=== PATIENT | female | born 1960 | race Caucasian/White ===

== ENCOUNTER 2017-11-24 11:12 | Outpatient (CLI) | payer BC | END 2017-11-24 11:13 | disposition home or self-care (01) | LOC: BICRAD 11:12 | PROVIDERS: ATTEND Internal Medicine | DX: R04.2 Hemoptysis (principal) | CPT/HCPCS: 36415; 71046; 80053; 80061; 81001; 84443; 85025; 87077; 87086; 87186 ==

== ENCOUNTER 2018-11-24 11:05 | Outpatient (CLI) | payer BC | END 2018-11-24 11:06 | disposition home or self-care (01) | LOC: BICMAMMO 11:05 | PROVIDERS: ATTEND Family Medicine | DX: Z12.31 Encounter for screening mammogram for malignant neoplasm of breast (principal); R92.1 Mammographic calcification found on diagnostic imaging of breast; N64.89 Other specified disorders of breast; Z98.890 Other specified postprocedural states; Z80.3 Family history of malignant neoplasm of breast | CPT/HCPCS: 77063; 77067 ==

== ENCOUNTER 2019-02-02 09:21 | Outpatient (CLI) | payer BC ==
--- NOTE | 2019-02-02 10:53 | ULT ---
BILATERAL CAROTID DUPLEX ULTRASOUND: DATE: 02/02/19 HISTORY: Left carotid bruit. TECHNIQUE: Julio scale ultrasound with color flow and spectral Doppler imaging of the extracranial carotid artery systems performed bilaterally. FINDINGS: There is mild plaque formation, predominantly in the left ICA. The peak systolic velocity in the right ICA measures 65 cm/second with an end-diastolic velocity of 1 5 cm/second and a systolic ratio of 0.86. The peak systolic velocity in the left ICA measures 56 cm/second with an end-diastolic velocity of 19 cm/second and a systolic ratio of 0.58. Flow in both vertebral arteries remains antegrade. IMPRESSION: No evidence of hemodynamically significant stenosis. POS: [facility]
== END 2019-02-02 09:22 | disposition home or self-care (01) ==
LOC: SCSULT 09:21
PROVIDERS: ATTEND Family Medicine
DX: I65.22 Occlusion and stenosis of left carotid artery (principal)
CPT/HCPCS: 93880

== ENCOUNTER 2019-03-23 08:29 | Emergency (ER) | payer BC ==
[2019-03-23 09:25] LABS: #Eosinphils 0.2 thou/uL (0.0-0.7); #Lymphocytes 1.4 thou/uL (1.20-3.40); #Monocytes 0.5 thou/uL (0.11-0.59); #Neutrophils 3.4 thou/uL (1.40-6.50); %Basophils 0.9 % (0.0-1.0); %Eosinophils 3.1 % (0.0-10.0); %Lymphocytes 25.7 % (21.0-51.0); %Monocytes 8.3 % (0.0-10.0); %Neutrophils 62.1 % (42.0-75.0); Hemoglobin 13.5 g/dL (12.0-16.0); Mean Corpuscular HGB CONC 32.4 g/dL (32.0-36.0); Mean Corpuscular Hemoglobin 28.6 pg (27.0-31.0); Mean Corpuscular Volume 88.4 fL (78.0-98.0); Mean Platelet Volume 6.8 fL (7.4-10.4); Platelet Count 233 thou/uL (130-400); RBC Distribution Width 13.3 % (11.5-14.5); Red Blood Cell (RBC) Count 4.71 mill/uL (4.20-5.40); White Blood Cell (WBC) Count 5.5 thou/uL (4.8-10.8)
[2019-03-23 09:32] LABS: INR-International Normal Ratio 1.9; PTT 46.2 SEC (22.9-36.1); Prothrombin Time 21.4 SEC (12.0-14.7)
[2019-03-23 09:39] LABS: ALT (SGPT) 16 U/L (8-55); AST (SGOT) 18 U/L (5-34); Albumin 4.3 g/dL (3.5-5.0); Alkaline Phosphatase 97 U/L (40-150); Anion Gap 14 mmol/L (10-20); BUN (Urea Nitrogen) 11 mg/dL (9.8-20.1); Bilirubin, Total 2.3 mg/dL (0.2-1.2); Calc. Creatinine Clearance 0 mL/min (70-130); Calcium 9.5 mg/dL (7.8-10.44); Carbon Dioxide 26 mmol/L (22-29); Chloride 104 mmol/L (98-107); Estimated GFR-MDRD 66; Globulin 2.9 g/dL (2.4-3.5); Glucose 195 mg/dL (70-105); Potassium 4.4 mmol/L (3.5-5.1); Protein, Total 7.2 g/dL (6.0-8.3); Sodium 140 mmol/L (136-145)
--- NOTE | 2019-03-23 09:41 | CT ---
CT BRAIN NONCONTRAST: DATE: 03/23/2019 HISTORY: 58-year-old female with convulsions and weakness, acute FINDINGS: There is no evidence of acute intra-axial or extra-axial hemorrhage. There is no midline shift or any other mass effect. There is no extra-axial fluid collection. There is no evidence of obstructive hydrocephalus. Calvarium is intact. IMPRESSION: No acute intracranial findings.
[2019-03-23] MEDS ORDERED: Ondansetron PF 4 MG/2 ML Vial ONE (10:20)
--- NOTE | 2019-03-23 12:05 | CT ---
CT ANGIOGRAM HEAD AND NECK: HISTORY: CVA. The patient was undergoing a left shoulder MRI when the right jaw felt numb. Right arm started shaking uncontrollably. COMPARISON: None. TECHNIQUE: CT angiogram of the head and neck are performed in the axial plane. Three-dimensional reformatted im ages are submitted for interpretation. FINDINGS: POST CONTRAST HEAD CT: Small indeterminate lacunar infarct in the anterior limb of the right interna l capsule. Cortical lacy white matter differentiation is preserved. The calvarium is intact. Adequ ate aeration of the sinuses and mastoid air cells. Bilateral ocular lenses are appropriately located. Both globes are intact. Retrobulbar fat is prese rved. Symmetric attenuation of the optic nerves and ocular rectus muscles. The aerodigestive tract is patent. No mucosal abnormality. Limited evaluation of the oral cavity du e to dental amalgam artifact. Midline fatty raphe of the tongue is preserved. Symmetric attenuation of the parotid and submandibular glands. Symmetric attenuation of the sternocl eidomastoid muscles. Unremarkable thyroid gland. No evidence of lymphadenopathy by size criteria. Cervical spine vertebral body height is maintained. There is no fracture. The central spinal canal and neural foramina are patent. Evaluation is limited by technique. The visualized lung apices and upper mediastinum are unremarkable. CT ANGIOGRAM: The visualized aortic arch has appropriate enhancement and luminal diameter. The right carotid artery origin has appropriate enhancement and luminal diameter. The right common c arotid artery, carotid bifurcation, and internal carotid artery have appropriate enhancement and parul nal diameter. The left carotid artery origin has appropriate enhancement and luminal diameter. The left common car otid artery, carotid bifurcation, and internal carotid artery have appropriate enhancement and lumina l diameter. Both cervical vertebral bodies are patent throughout their course in the neck. The visualized subclav neptali arteries are also patent. CT ANGIOGRAM HEAD: There is symmetric enhancement and luminal diameter of the intracranial internal carotid arteries. ANTERIOR CIRCULATION: Symmetric enhancement and luminal diameter of the A1 and M1 segments. The pro ximal MCA branches and the A2 segments are also unremarkable. POSTERIOR CIRCULATION: Left and right PICA origins are limited in evaluation. Both vertebral arteri es supply a normal appearing basilar artery. There is tortuosity of the distal left vertebral artery . The left and right PICA origins have appropriate enhancement and luminal diameter. Incidental dev elopment of venous anomaly is noted in the left frontal cortex. IMPRESSION: 1. Unremarkable CT angiogram head. No significant stenosis of the [place] of [place]. 2. No significant stenosis of the cervical, carotid, or vertebral arteries. 3. No significant stenosis based upon NASCET criteria. The results of the study were discussed with Dr. Coronado on 03/23/2019 at 10:44 a.m. RYAN MAKI POS: OFF
== END 2019-03-23 11:09 | disposition home or self-care (01) ==
LOC: SCSER 08:29
DX: R25.1 Tremor, unspecified (principal); G89.29 Other chronic pain; R53.1 Weakness; R20.0 Anesthesia of skin; M25.551 Pain in right hip; G43.909 Migraine, unspecified, not intractable, without status migrainosus; I48.91 Unspecified atrial fibrillation; F32.9 Major depressive disorder, single episode, unspecified; I10 Essential (primary) hypertension; E66.9 Obesity, unspecified
CPT/HCPCS: 70450; 70496; 70498; 80053; 84484; 85025; 85610; 85730; 93005; 96361; 96374; J2405

== ENCOUNTER 2019-04-06 04:47 | Inpatient (IN) | payer BC ==
[2019-04-06 05:43] LABS: #Eosinphils 0.1 thou/uL (0.0-0.7); #Monocytes 0.9 thou/uL (0.11-0.59); #Neutrophils 9.9 thou/uL (1.40-6.50); %Basophils 0.1 % (0.0-1.0); %Eosinophils 0.5 % (0.0-10.0); %Lymphocytes 8.1 % (21.0-51.0); %Monocytes 7.3 % (0.0-10.0); Hemoglobin 13.2 g/dL (12.0-16.0); Mean Corpuscular Hemoglobin 29.4 pg (27.0-31.0); Mean Corpuscular Volume 89.1 fL (78.0-98.0); Mean Platelet Volume 6.7 fL (7.4-10.4); Platelet Count 223 thou/uL (130-400); Red Blood Cell (RBC) Count 4.48 mill/uL (4.20-5.40); White Blood Cell (WBC) Count 11.7 thou/uL (4.8-10.8)
[2019-04-06 05:49] LABS: INR-International Normal Ratio 1.1; PTT 35.4 SEC (22.9-36.1); Prothrombin Time 14.3 SEC (12.0-14.7)
[2019-04-06 06:06] LABS: ALT (SGPT) 15 U/L (8-55); AST (SGOT) 17 U/L (5-34); Albumin 4.6 g/dL (3.5-5.0); Alkaline Phosphatase 102 U/L (40-150); Anion Gap 16 mmol/L (10-20); BUN (Urea Nitrogen) 17 mg/dL (9.8-20.1); Bilirubin, Total 2.4 mg/dL (0.2-1.2); Calc. Creatinine Clearance 0 mL/min (70-130); Calcium 9.4 mg/dL (7.8-10.44); Carbon Dioxide 22 mmol/L (22-29); Chloride 104 mmol/L (98-107); Estimated GFR-MDRD 51; Globulin 2.7 g/dL (2.4-3.5); Glucose 225 mg/dL (70-105); Lipase 83 U/L (8-78); Potassium 3.9 mmol/L (3.5-5.1); Protein, Total 7.3 g/dL (6.0-8.3); Sodium 138 mmol/L (136-145)
[2019-04-06] MEDS ORDERED: Pantoprazole 40 MG VIAL ONE (06:39)
[2019-04-06] MEDS ORDERED: Ondansetron PF 4 MG/2 ML Vial ONE (06:39)
--- NOTE | 2019-04-06 09:00 | RAD ---
PORTABLE CHEST: Date: 04-06-19 Time: 5:10 a.m. History: Vomiting, diarrhea. FINDINGS: Comparison is made with exam 08-08-15. The heart size is normal. The lungs are expanded without focal areas of consolidation, pneumothoraces or pleural effusions. There is evidence of old granulomatous disease. IMPRESSION: No acute process. POS: [facility]
[2019-04-06 09:08] VITALS: BMI 40.4
[2019-04-06] MEDS ORDERED: Dextrose 50% Abboject 50 ML SYRINGE SLOW IVP PRN (10:04)
[2019-04-06] MEDS ORDERED: Dextrose 5% in Water 1,000 ML IV PRN (10:04)
[2019-04-06] MEDS ORDERED: Insulin Regular 300 UNITS/3 ML VIAL SC PRN ×2 (10:04)
--- NOTE | 2019-04-06 11:47 | ULT ---
Abdominal ultrasound: 04/06/2019 COMPARISON: None HISTORY: Vomiting blood, abdominal pain TECHNIQUE: Multiplanar grayscale sonographic imaging of the abdomen obtained. FINDINGS: The imaged pancreas is unremarkable. The pancreas is partially obscured by bowel gas. Image d IVC and aorta appear unremarkable, also partially obscured by bowel gas. The hepatic parenchyma is heterogeneous and echogenic, limiting assessment for focal lesion, suggesti ng steatosis. Gallbladder is surgically absent. Right kidney measures 11.7 cm in craniocaudal dimension and demonstrates no evidence for stone, hydro nephrosis, or mass. CBD measures 6 mm, within normal limits. Left kidney measures 12.1 cm in craniocaudal dimension and demonstrates no stone, hydronephrosis, or mass. Spleen is upper limits of normal in size, measuring up to 13.7 cm. IMPRESSION: Incidental findings as detailed above. No acute abnormality.
[2019-04-06] MEDS ORDERED: Promethazine HCl 6.25 MG/5 ML Syrup PO PRN ×2 (13:58)
[2019-04-06] MEDS ORDERED: Promethazine HCl 25 MG/ML VIAL SLOW IVP PRN (13:58)
[2019-04-06] MEDS ORDERED: Acetaminophen 325 MG TAB PO PRN (14:02)
[2019-04-06] MEDS ORDERED: Calcium Carbonate 500 MG ChewTAB PO PRN (14:02)
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
[2019-04-06] MEDS: Sodium Chloride 0.9% 1,000 ML IV SCH (15:00)
--- NOTE | 2019-04-06 17:28 | CON ---
DATE OF CONSULTATION: 04/06/2019 REASON FOR CONSULTATION: Hematemesis. HISTORY OF PRESENT ILLNESS: Allison Xiong is a 58-year-old woman with a history of obesity and atrial fibrillation, on Xarelto chronically. She reports a prior history of gastric and esophageal ulcers as well as colon polyps way back in 1999 with no endoscopy since that time. She does not really have any chronic gastrointestinal symptoms. She had a cholecystectomy, appendectomy, and hysterectomy back around 1999. Looking back, I note that she has a chronically elevated total bilirubin for several years with otherwise normal LFTs, and says this has been previously characterized as possibly due to medication effect. She is not on any acid suppressive therapy. She does not take any nonsteroidal anti-inflammatory drugs. She awoke acutely about 1:30 this morning with severe nausea and epigastric pain. She had several episodes of emesis. The very first episode had both bright and dark red blood in it, this was alarming to her. Subsequent vomiting episodes actually did not have any blood. She then passed a hard bowel movement and this was followed by multiple loose to watery bowel movements. Initially, the bowel movements were dark, though they got digital media associate as the morning went on. She has had about 3 of these bowel movements this morning. Upon presentation in the emergency department, labs demonstrated a mild leukocytosis with WBC 11.7, but normal hemoglobin 13.2. She has been hemodynamically stable. Her Xarelto was held this morning. She was started on Protonix IV and is n.p.o. status currently. She is still having some epigastric pain, but no vomiting for the past few hours. REVIEW OF SYSTEMS: Full review of systems including constitutional, head, eyes, ears, nose, throat, GI, , cardiovascular, respiratory, musculoskeletal, neurologic systems is negative except as noted in the HPI. PAST MEDICAL HISTORY: Obesity, sleep apnea, migraine headaches, atrial fibrillation, cardiac ablation in December 2014, chronic anticoagulation with Xarelto, history of right lower extremity DVT, appendectomy in 1999, cholecystectomy in 1999, hysterectomy in 1999, gastric ulcer diagnosed around 1999, colon polyps diagnosed around 1999. SOCIAL HISTORY: She is a former smoker. Alcohol use is social. No drug use. FAMILY HISTORY: She has a sister with Crohn disease and another sister with ulcerative colitis. ALLERGIES: ASPIRIN, IBUPROFEN, LATEX, TOPAMAX, TORADOL. OUTPATIENT MEDICATIONS: 1. Xarelto. 2. Propranolol. 3. Flecainide. 4. Atorvastatin. 5. Losartan. 6. Coenzyme Q10. 7. Magnesium oxide. 8. Sumatriptan. 9. Januvia. INPATIENT MEDICATIONS: 1. Sliding scale insulin. 2. Protonix 40 mg IV q.12 hours. PHYSICAL EXAMINATION: VITAL SIGNS: Temperature 98.8, pulse 82, blood pressure 115/73, 95% oxygen saturation on room air. GENERAL: Obese 58-year-old woman, lying in bed comfortably, in no distress. MENTAL: Alert and fully oriented, able to give detailed history. SKIN: No jaundice. No rashes were palpable. EYES: No scleral icterus. Extraocular movements intact. ENT: Mucous membranes moist. No oral lesions. LYMPH: No submandibular or supraclavicular lymphadenopathy. THYROID: Nontender to palpation. HEART: Regular rate and rhythm. LUNGS: Clear to auscultation bilaterally. ABDOMEN: Bowel sounds present. Soft. Some tenderness to palpation in the epigastrium. Nontender elsewhere. No guarding or rebound tenderness. EXTREMITIES: No peripheral edema. Vessels, radial pulses 2+ bilaterally. NEUROLOGIC: Cranial nerves 2 through 12 intact bilaterally. No focal deficits. LABORATORY STUDIES: WBC 11.7, hemoglobin normal at 13.2, and platelets 223. INR 1.1. BUN 17, creatinine 1.10, glucose 225. Troponin negative. TSH 2.49. Lipase marginally elevated to 83, total bilirubin elevated to 2.4, otherwise normal LFTs with alkaline phosphatase 102, AST 17, ALT 15, albumin 4.6. IMAGING STUDIES: Chest x-ray shows no acute processes. ASSESSMENT AND PLAN: 1. Acute hematemesis. 2. Nausea and vomiting. 3. Epigastric pain. The patient reports a prior history of peptic ulcer disease. She is not on any acid suppression. Note this is in the context of acute diarrhea as well. Consider the possibility of Yamilet-Lr tear, peptic ulcer disease, or acute infectious gastroenteritis. The marginal lipase elevation likely does not signify pancreatitis, and the bilirubin elevation I note is chronic with otherwise normal LFTs, likely representing Gilbert syndrome. 4. Acute diarrhea. 5. Hyperbilirubinemia. 6. The patient's Xarelto is being held today. Continue to hold the Xarelto, and we will plan for diagnostic esophagogastroduodenoscopy tomorrow. I think n.p.o. status for the remainder of the day is reasonable as we see how her symptoms evolve. I would trend her CBC, LFTs with direct bilirubin, and lipase tomorrow. We will get an abdominal ultrasound given the marginal lipase and total bilirubin elevation. We will also order stool studies for enteric pathogens. Thank you for the consultation. Further recommendations following EGD tomorrow. Please call anytime with questions or concerns. Job ID: [id number]
[2019-04-06] MEDS: Flecainide 50 MG TAB PO SCH (20:30)
[2019-04-06] MEDS: Pantoprazole 40 MG VIAL IVP SCH (20:34)
[2019-04-06] MEDS ORDERED: Atorvastatin Calcium 40 MG TAB PO SCH (21:00)
[2019-04-06] MEDS ORDERED: Losartan 25 MG TAB PO SCH (21:00)
[2019-04-06] MEDS ORDERED: Propranolol HCl 20 MG TAB PO SCH (21:00)
[2019-04-07] MEDS: Sodium Chloride 0.9% 1,000 ML IV SCH ×2 (03:12→08:02)
[2019-04-07 04:58] LABS: #Eosinphils 0.1 thou/uL (0.0-0.7); #Lymphocytes 1.5 thou/uL (1.20-3.40); #Monocytes 0.4 thou/uL (0.11-0.59); %Basophils 0.1 % (0.0-1.0); %Eosinophils 3.6 % (0.0-10.0); %Lymphocytes 36.7 % (21.0-51.0); %Monocytes 10.7 % (0.0-10.0); %Neutrophils 48.9 % (42.0-75.0); Hemoglobin 11.7 g/dL (12.0-16.0); Mean Corpuscular HGB CONC 33.2 g/dL (32.0-36.0); Mean Corpuscular Hemoglobin 29.7 pg (27.0-31.0); Mean Corpuscular Volume 89.7 fL (78.0-98.0); Mean Platelet Volume 6.7 fL (7.4-10.4); Platelet Count 185 thou/uL (130-400); Red Blood Cell (RBC) Count 3.94 mill/uL (4.20-5.40)
[2019-04-07 05:14] LABS: ALT (SGPT) 14 U/L (8-55); AST (SGOT) 16 U/L (5-34); Albumin 3.9 g/dL (3.5-5.0); Alkaline Phosphatase 73 U/L (40-150); Anion Gap 11 mmol/L (10-20); BUN (Urea Nitrogen) 7 mg/dL (9.8-20.1); Bilirubin, Direct 0.8 mg/dL (0.1-0.3); Calc. Creatinine Clearance 148 mL/min (70-130); Carbon Dioxide 26 mmol/L (22-29); Chloride 107 mmol/L (98-107); Estimated GFR-MDRD 74; Glucose 178 mg/dL (70-105); Lipase 38 U/L (8-78); Magnesium 1.7 mg/dL (1.6-2.6); Potassium 4.2 mmol/L (3.5-5.1); Protein, Total 6.3 g/dL (6.0-8.3); Sodium 140 mmol/L (136-145)
[2019-04-07] MEDS: Pantoprazole 40 MG VIAL IVP SCH ×2 (08:01→20:31)
[2019-04-07] MEDS: Flecainide 50 MG TAB PO SCH (08:03)
[2019-04-07] MEDS ORDERED: Propranolol HCl 20 MG TAB PO SCH (09:00)
--- NOTE | 2019-04-07 12:25 | PDOC.PN ---
- Subjective Encounter Start Date: 04/07/19 Encounter Start Time: 11:30 Patient seen and examined for GI bleeding. No N/V/GI bleeding. No CP/SOB. No new complaints. No overnight events - Objective Resuscitation Status - Order Detail: 04/06/19 14:02 Resuscitation Status Routine Resuscitation Status: FULL: Full Resuscitation MAR Reviewed: Yes Vital Signs & Weight: Vital Signs (12 hours) Temp Pulse Resp BP BP Pulse Ox 04/07/19 11:17 99.0 F 74 18 114/74 97 04/07/19 07:35 98.5 F 76 18 97/62 93 L 04/07/19 06:47 112/71 04/07/19 05:55 98.4 F 75 18 109/72 122/63 98 Weight Weight 266 lb I&O: 04/06/19 04/07/19 04/08/19 06:59 06:59 06:59 Intake Total 1250 Balance 1250 Result Diagrams: 04/07/19 04:38 04/07/19 04:38 Additional Labs: Accuchecks 04/07/19 04/07/19 04/06/19 11:19 05:37 20:12 POC Glucose 137 H 168 H 153 H 04/06/19 16:00 POC Glucose 156 H Phys Exam - Physical Examination Constitutional: NAD Respiratory: no wheezing, no rhonchi Cardiovascular: RRR, no rub Gastrointestinal: soft, non-tender, positive bowel sounds Musculoskeletal: no edema Neurological: moves all 4 limbs Dx/Plan - Plan DVT proph w/SCDs IMPRESSION: 1. Upper gastrointestinal bleeding probably secondary to peptic ulcer disease. 2. Paroxysmal atrial fibrillation. Anticoagulation on hold. 3. Chronic kidney disease, stage 3. 4. Diabetes mellitus type 2. 5. Abnormal total bilirubin with a normal caliber common bile duct. 6. Morbid obesity with a BMI of 40.4. 7. Hypertension. 8. Hyperlipidemia. 9. Depression, mild, stable. 10. Anxiety. 11. History of migraine headache. 12. Chronic pain syndrome. 13. History of deep venous thrombosis. 14. History of seizure disorder. 15. History of herpes zoster. PLAN: EGD today Cont PPI Cont other meds as below Stool w/u negative except lactoferrin Laboratory Tests 04/07/19 04:38 Total Bilirubin 3.0 H Direct Bilirubin 0.8 H Lipase 38 Review of Systems - Review of Systems Respiratory: negative: Cough, Dry, Shortness of Breath, Hemoptysis, SOB with Excertion, Pleuritic Pain, Sputum, Wheezing Cardiovascular: negative: chest pain, palpitations, orthopnea, paroxysmal nocturnal dyspnea, edema, light headedness, other - Medications/Allergies Allergies/Adverse Reactions: Allergies Allergy/AdvReac Type Severity Reaction Status Date / Time aspirin Allergy Anaphylaxis Verified 04/06/19 09:09 banana Allergy Rash Verified 04/06/19 09:12 egg Allergy Diarrhea Verified 04/06/19 09:12 gentamicin Allergy Hives Verified 04/06/19 09:12 ibuprofen [From Motrin] Allergy Anaphylaxis Verified 04/06/19 09:09 ketorolac tromethamine Allergy Anaphylaxis Verified 04/06/19 09:09 [From Toradol] Latex, Natural Rubber Allergy Anaphylaxis Verified 04/06/19 09:09 topiramate [From Topamax] Allergy Anaphylaxis Verified 04/06/19 09:09 [email or web address] Allergy Anaphylaxis Uncoded 04/06/19 09:09 nasal sprays Allergy Headache Uncoded 04/06/19 09:12 Medications: Current Medications Acetaminophen (Tylenol) 650 mg PO Q4H PRN PRN Reason: Headache/Fever/Mild Pain (1-3) Last Admin: 04/06/19 17:15 Dose: 650 mg Atorvastatin Calcium (Lipitor) 40 mg PO HS [facility] Last Admin: 04/06/19 20:29 Dose: 40 mg Calcium Carbonate (Tums) 1,000 mg PO Q4H PRN PRN Reason: Heartburn or Indigestion Dextrose/Water (Dextrose 50%) 25 gm SLOW IVP PRN PRN PRN Reason: Hypoglycemia Flecainide Acetate (Tambocor) 100 mg PO BID [facility] Last Admin: 04/07/19 08:03 Dose: 100 mg Glucagon (Glucagon) 1 mg IM PRN PRN PRN Reason: Hypoglycemia Dextrose/Water (D5w) 1,000 mls @ 0 mls/hr IV .Q0M PRN PRN Reason: Hypoglycemia Sodium Chloride (Normal Saline 0.9%) 1,000 mls @ 70 mls/hr IV .[id number] [facility] Stop: 04/08/19 14:16 Last Admin: 04/07/19 08:02 Dose: 1,000 mls Insulin Human Regular (Humulin R) 0 units SC .MILD SLIDING SCALE PRN PRN Reason: Mild Correctional Scale Insulin Human Regular (Humulin R) 0 units SC .BEDTIME SLIDING SC PRN PRN Reason: Bedtime Correctional Scale Losartan Potassium (Cozaar) 25 mg PO [facility] Last Admin: 04/06/19 20:30 Dose: Not Given Pantoprazole Sodium (Protonix) 40 mg IVP Q12HR [facility] Last Admin: 04/07/19 08:01 Dose: 40 mg Promethazine HCl (Phenergan 6.25 Mg/5ml Syrup) 12.5 mg PO Q6H PRN PRN Reason: Nausea/Vomiting Promethazine HCl (Phenergan) 12.5 mg SLOW IVP Q4H PRN PRN Reason: Nausea/Vomiting Promethazine HCl (Phenergan 6.25 Mg/5ml Syrup) 25 mg PO Q6H PRN PRN Reason: Nausea/Vomiting Propranolol HCl (Inderal) 20 mg PO [facility] Last Admin: 04/07/19 08:04 Dose: Not Given Propranolol HCl (Inderal) 40 mg PO [facility] Last Admin: 04/06/19 20:32 Dose: Not Given Sodium Chloride (Normal Saline Pf) 10 ml FS PRN PRN PRN Reason: RECONSTITUTION Sodium Chloride (Flush - Normal Saline) 10 ml IVF PRN PRN PRN Reason: Saline Flush
[2019-04-07] MEDS ORDERED: Sodium Chloride 0.65% Nasal 44 ML BOT EA NARE PRN (12:27)
[2019-04-07] MEDS ORDERED: Ketamine 50 MG/ML (10ML VIAL) ONE (13:05)
[2019-04-07] MEDS ORDERED: PROPOFOL 200 MG/20 ML VIAL ONE (13:37)
--- NOTE | 2019-04-07 14:56 | PRG ---
DATE OF SERVICE: 04/07/2019 SUBJECTIVE: The patient had an endoscopy today, for those results see endoscopy report. ASSESSMENT: 1. Hematemesis likely hematogenic injury. No stigmata on endoscopy for high-risk bleeding, stable hemoglobin. Can resume anticoagulation tomorrow. 2. Mildly elevated lipase, resolved. Normal ultrasound. 3. Mildly elevated bilirubin, likely for Gilbert's with indirect hyperbilirubinemia. PLAN: Advance diet as tolerated. Transition Protonix to p.o. Job ID: [id number]
--- NOTE | 2019-04-07 20:25 | OP ---
DATE OF PROCEDURE: 04/07/2019 PRE-PROCEDURE DIAGNOSES: 1. Reported hematemesis. 2. On Xarelto, off for the last 48 hours. POSTPROCEDURE DIAGNOSES: 1. Small hiatal hernia with Schatzki's ring. 2. Hematogenic injury in proximal stomach with no stigmata of high risk for rebleeding. 3. Otherwise normal EGD and stomach and duodenum to the second and third portion. RECOMMENDATIONS: 1. Advance diet slowly. 2. Patient reports a prior history of colon polyps and in the outpatient setting, she should pursue followup colonoscopy, whether that is where she lives or here, either way would be fine. ANESTHESIA: TIVA. PROCEDURE IN DETAIL: The patient was informed of the risks, benefits, and possible complications of endoscopy, perforation, bleeding, reaction to medication and aspiration. Informed consent was obtained. The patient was brought to the endoscopy suite, where she was sedated in gradual fashion. Once she was comfortable, a bite block was placed inside her orifice. The endoscope was advanced through the esophagus, stomach, second and third portion. The esophagus was normal except for slight shallow Schatzki's ring with small hiatal hernia. There was no evidence of bleeding or ulcers or erosions in the esophagus. The scope was advanced in the stomach, which was normal in forward and retroflexed views. There was a little bit of hematogenic injury in proximal stomach again, but no lesions to indicate high risk of rebleeding. The pyloric channel was normal. The duodenum was normal to the third portion. The scope was removed. The patient tolerated the procedure well with no other complications. Job ID: [id number]
[2019-04-08 08:21] LABS: Hemoglobin 11.6 g/dL (12.0-16.0); Platelet Count 200 thou/uL (130-400)
[2019-04-08] MEDS: Sodium Chloride 0.9% (PF) 10 ML VIAL FS PRN (08:54)
[2019-04-08] MEDS: Pantoprazole 40 MG VIAL IVP SCH ×2 (08:54→20:46)
--- NOTE | 2019-04-08 17:23 | PDOC.PN ---
- Subjective Encounter Start Date: 04/08/19 Encounter Start Time: 13:30 Patient seen and examined for GI bleeding. No new hematemesis/melena. Nauseas. No vomiting. No new complaints. No overnight events - Objective Resuscitation Status - Order Detail: 04/06/19 14:02 Resuscitation Status Routine Resuscitation Status: FULL: Full Resuscitation MAR Reviewed: Yes Vital Signs & Weight: Vital Signs (12 hours) Temp Pulse Resp BP Pulse Ox 04/08/19 08:00 96 04/08/19 07:36 98.5 F 76 14 132/78 96 Weight Weight 266 lb I&O: 04/07/19 04/08/19 04/09/19 06:59 06:59 06:59 Intake Total 1250 350 Balance 1250 350 Result Diagrams: 04/08/19 08:05 04/07/19 04:38 Additional Labs: Accuchecks 04/08/19 04/08/19 04/08/19 16:13 11:37 04:19 POC Glucose 194 H 162 H 139 H 04/07/19 19:57 POC Glucose 191 H Phys Exam - Physical Examination Constitutional: NAD Respiratory: no wheezing, no rhonchi Cardiovascular: RRR, no rub Gastrointestinal: soft, non-tender, positive bowel sounds Musculoskeletal: no edema Neurological: moves all 4 limbs Dx/Plan - Plan DVT proph w/SCDs IMPRESSION: 1. Upper gastrointestinal bleeding probably secondary to peptic ulcer disease. s /p EGD 2. Paroxysmal atrial fibrillation. Anticoagulation on hold. on Flecainide and Inderal. 3. Chronic kidney disease, stage 3. 4. Diabetes mellitus type 2. 5. Abnormal total bilirubin with a normal caliber common bile duct. 6. Morbid obesity with a BMI of 40.4. 7. Hypertension. 8. Hyperlipidemia. 9. Depression, mild, stable. 10. Anxiety. 11. History of migraine headache. 12. Chronic pain syndrome. 13. History of deep venous thrombosis. 14. History of seizure disorder. 15. History of herpes zoster. PLAN: Advance diet slowly per GI Cont IV PPI Xarelto on hold - resume when ok with GI Cont other meds as below Review of Systems - Medications/Allergies Allergies/Adverse Reactions: Allergies Allergy/AdvReac Type Severity Reaction Status Date / Time aspirin Allergy Anaphylaxis Verified 04/06/19 09:09 banana Allergy Rash Verified 04/06/19 09:12 egg Allergy Diarrhea Verified 04/06/19 09:12 gentamicin Allergy Hives Verified 04/06/19 09:12 ibuprofen [From Motrin] Allergy Anaphylaxis Verified 04/06/19 09:09 ketorolac tromethamine Allergy Anaphylaxis Verified 04/06/19 09:09 [From Toradol] Latex, Natural Rubber Allergy Anaphylaxis Verified 04/06/19 09:09 topiramate [From Topamax] Allergy Anaphylaxis Verified 04/06/19 09:09 [email or web address] Allergy Anaphylaxis Uncoded 04/06/19 09:09 nasal sprays Allergy Headache Uncoded 04/06/19 09:12 Medications: Current Medications Acetaminophen (Tylenol) 650 mg PO Q4H PRN PRN Reason: Headache/Fever/Mild Pain (1-3) Last Admin: 04/06/19 17:15 Dose: 650 mg Calcium Carbonate (Tums) 1,000 mg PO Q4H PRN PRN Reason: Heartburn or Indigestion Dextrose/Water (Dextrose 50%) 25 gm SLOW IVP PRN PRN PRN Reason: Hypoglycemia Glucagon (Glucagon) 1 mg IM PRN PRN PRN Reason: Hypoglycemia Dextrose/Water (D5w) 1,000 mls @ 0 mls/hr IV .Q0M PRN PRN Reason: Hypoglycemia Insulin Human Regular (Humulin R) 0 units SC .MILD SLIDING SCALE PRN PRN Reason: Mild Correctional Scale Insulin Human Regular (Humulin R) 0 units SC .BEDTIME SLIDING SC PRN PRN Reason: Bedtime Correctional Scale Pantoprazole Sodium (Protonix) 40 mg IVP Q12HR JUAN Last Admin: 04/08/19 08:54 Dose: 40 mg Promethazine HCl (Phenergan 6.25 Mg/5ml Syrup) 12.5 mg PO Q6H PRN PRN Reason: Nausea/Vomiting Promethazine HCl (Phenergan) 12.5 mg SLOW IVP Q4H PRN PRN Reason: Nausea/Vomiting Last Admin: 04/07/19 20:38 Dose: 12.5 mg Promethazine HCl (Phenergan 6.25 Mg/5ml Syrup) 25 mg PO Q6H PRN PRN Reason: Nausea/Vomiting Sodium Chloride (Normal Saline Pf) 10 ml FS PRN PRN PRN Reason: RECONSTITUTION Last Admin: 04/08/19 08:54 Dose: 10 ml Sodium Chloride (Flush - Normal Saline) 10 ml IVF PRN PRN PRN Reason: Saline Flush Sodium Chloride (Kemper Nasal [place] 0.65%) 0 ml EA NARE TID PRN PRN Reason: Nasal Congestion
[2019-04-08] MEDS ORDERED: Rivaroxaban 10 MG TAB PO SCH (19:30)
--- NOTE | 2019-04-08 19:58 | PRG ---
DATE OF SERVICE: 04/08/2019 SUBJECTIVE: Ms. Moya is feeling a little bit better today. She has had some persistent nausea, tolerating her liquid diet so far with no emesis. She had 5 loose bowel movements earlier today as well. She has been hemodynamically stable. OBJECTIVE: VITAL SIGNS: Temperature 98.5, pulse 76, blood pressure 132/78, and 96% oxygen saturation on room air. GENERAL: No acute distress. HEART: Regular rate and rhythm. LUNGS: Clear to auscultation bilaterally. ABDOMEN: Bowel sounds present. Soft and nontender to palpation. EXTREMITIES: No peripheral edema. LABORATORY STUDIES: Hemoglobin stable at 11.6, hematocrit 35.2, platelets 200. INR 1.1. Glucose 194. Total bilirubin was 3.0, direct bilirubin only 0.8. Other LFTs all normal. Lipase normal at 38. IMAGING STUDIES: Abdominal ultrasound showed normal common bile duct 6 mm, absent gallbladder, steatosis of the liver, no focal lesion. EGD yesterday showed only some slight erythema in the gastric fundus consistent with emetogenic injury, otherwise essentially normal. ASSESSMENT AND PLAN: 1. Nausea, slowly improving. This likely represents an acute viral gastroenteritis. Note the essentially normal esophagogastroduodenoscopy, normal ultrasound, normal LFTs and lipase. She may have a component of developing gastroparesis as well. I would simply continue with supportive care at this point, advance diet as tolerated. No further GI studies planned at this admission. 2. Gilbert syndrome. She has had consistently elevated total bilirubin for several years. Her direct fraction is quite low with otherwise normal LFTs. She has no evidence of primary liver disease. This appears to represent Gilbert syndrome and is of no clinical significance. 3. Acute blood loss anemia following a single episode of hematemesis, now stabilized. Hemoglobin is stable. No further bleeding. No stigmata of high risk for bleeding on EGD yesterday as Dr. Meyer had recommended yesterday, the patient's Xarelto can be resumed. GI will sign off at this point, but please call back with questions or concerns. We will plan to see her back in GI Clinic in the next few weeks. Job ID: [id number]
[2019-04-09] MEDS: Sodium Chloride 0.9% (PF) 10 ML VIAL FS PRN (08:26)
[2019-04-09] MEDS: Pantoprazole 40 MG VIAL IVP SCH (08:26)
[2019-04-09 09:47] VITALS: TEMP 98.2
[2019-04-09 11:50] VITALS: BP 120/69
[2019-04-09] MEDS ORDERED: Rivaroxaban 10 MG TAB PO SCH (18:00)
--- NOTE | 2019-04-10 05:07 | DIS ---
DATE OF ADMISSION: 04/06/2019 DATE OF DISCHARGE: 04/09/2019 PRIMARY CARE PROVIDER: Ebony Hoyt MD DISCHARGE DIAGNOSES: 1. Upper gastrointestinal bleed. 2. Symptomatic anemia. CONDITION OF PATIENT ON THE DAY OF DISCHARGE: Stable. I assessed, Ms. Nita Xiong on the day of discharge. She denies any chest pain or shortness of breath. Vital signs are stable. S1 and S2 are heard, regular. Lungs are clear to auscultation bilaterally. CONSULTATIONS DURING THIS HOSPITALIZATION: Gastroenterology, Dr. Jw Tello. DISCHARGE MEDICATIONS: In addition to her pre-admission home medications as dictated by Dr. Avila in his history and physical note dated April 06, 2019, she is being discharged home on Protonix 40 mg daily. Please note that rivaroxaban was also resumed prior to discharge at 20 mg at bedtime. HOSPITAL COURSE: Ms. Nita Xiong is a pleasant 58-year-old lady who was admitted to [facility] on April 06, 2019, for upper GI bleed. Please refer to Dr. Avila's history and physical note dated April 06, 2019, for further details. She also had elevated bilirubin, most likely secondary to Gilbert's syndrome. She had abdominal ultrasound, which showed common bile duct was 6 mm, within normal limits and spleen was upper limits of normal in size. She was seen by Gastroenterology Service. She underwent EGD on April 07, 2019. She was found to have a small hiatal hernia with Schatzki's ring and hematogenic injury in proximal stomach with no stigmata of high risk for rebleeding. She was restarted on her anticoagulation. Hemoglobin continued to be stable. She is being discharged home in a stable condition. Many thanks for allowing me to participate in your patient's care. Please feel free to contact me with any questions or concerns. DISCHARGE DESTINATION: Home. TIME SPENT: Total amount of time spent coordinating this discharge: 32 minutes. Job ID: [id number]
== END 2019-04-09 14:05 | disposition home or self-care (01) | DRG 378 ==
LOC: ERS 04:47 → T4-A 06:50
PROVIDERS: ADMIT Hospitalist; ATTEND Hospitalist
PROC: 0DJ08ZZ Inspection of Upper Intestinal Tract, Via Natural or Artificial Opening Endoscopic (ICD-10-PCS; principal; 2019-04-07)
DX: K92.0 Hematemesis (principal); Z68.41 Body mass index [BMI] 40.0-44.9, adult; D62 Acute posthemorrhagic anemia; G47.30 Sleep apnea, unspecified; G43.809 Other migraine, not intractable, without status migrainosus; E80.6 Other disorders of bilirubin metabolism; I48.0 Paroxysmal atrial fibrillation; F41.9 Anxiety disorder, unspecified; M54.9 Dorsalgia, unspecified; D64.9 Anemia, unspecified; E11.22 Type 2 diabetes mellitus with diabetic chronic kidney disease; F32.9 Major depressive disorder, single episode, unspecified; G40.909 Epilepsy, unspecified, not intractable, without status epilepticus; G89.4 Chronic pain syndrome; K44.9 Diaphragmatic hernia without obstruction or gangrene; K22.2 Esophageal obstruction; I12.9 Hypertensive chronic kidney disease with stage 1 through stage 4 chronic kidney disease, or unspecified chronic kidney disease; E80.4 Gilbert syndrome; N18.3 Chronic kidney disease, stage 3 (moderate); E66.01 Morbid (severe) obesity due to excess calories; Z90.710 Acquired absence of both cervix and uterus; Z87.19 Personal history of other diseases of the digestive system; Z86.718 Personal history of other venous thrombosis and embolism; Z90.49 Acquired absence of other specified parts of digestive tract; Z87.891 Personal history of nicotine dependence; Z79.01 Long term (current) use of anticoagulants; Z88.8 Allergy status to other drugs, medicaments and biological substances; Z91.040 Latex allergy status; Z87.11 Personal history of peptic ulcer disease
CPT/HCPCS: 36415; 36416; 71045; 76700; 80048; 80053; 80076; 82274; 83630; 83690; 83735; 84443; 84484; 85014; 85018; 85025; 85049; 85610; 85730; 87045; 87046; 87324; 87449; 87899; 93005; 96365; 96375; C9113; J1815; J2405; J2550; J2704

== ENCOUNTER 2019-08-05 13:16 | Outpatient (CLI) | payer BC ==
--- NOTE | 2019-08-05 14:22 | CT ---
CT CHEST WITH CONTRAST CLINICAL INDICATION: Right middle lobe pulmonary nodule. Follow-up evaluation. COMPARISON: 09/03/2016. FINDINGS: Aorta: Vascular calcifications are seen in the thoracic aorta. The thoracic aorta is normal in calibe r. Lungs: A calcified granuloma is again seen in the superior segment of the right lower lobe. Mild depe ndent bibasilar atelectasis is present. No noncalcified pulmonary nodule is seen. There is no consolidation or pleural fluid seen bilaterally. Small thin-walled cyst is seen in the left lower lob e. Mediastinum: No evidence of lymphadenopathy. A small hiatal hernia is present. Thyroid gland: Normal CT appearance. Osseous structures: Mild degenerative changes are seen in the thoracic spine. Chest wall: No abnormality visualized. Upper abdomen: Postsurgical changes related to cholecystectomy are noted. Remainder of the visualized upper abdomen has a normal CT appearance. IMPRESSION: 1. No acute findings are seen in the chest. 2. No noncalcified pulmonary nodule or mass is seen in the lungs bilaterally. There is a calcified gr anuloma seen in the superior segment of the right lower lobe. 3. Small hiatal hernia.
[2019-08-05] MEDS ORDERED: ISOVUE-370 76%-LOCM 1 ML ONE (18:17)
== END 2019-08-05 13:17 | disposition home or self-care (01) ==
LOC: BICCT 13:16
PROVIDERS: ATTEND Family Medicine
DX: R91.1 Solitary pulmonary nodule (principal); K44.9 Diaphragmatic hernia without obstruction or gangrene; J84.10 Pulmonary fibrosis, unspecified
CPT/HCPCS: 71260; Q9966

== ENCOUNTER 2021-08-24 14:47 | Outpatient (CLI) | payer BC | END 2021-08-24 14:48 | disposition home or self-care (01) | LOC: BICULT 14:47 | PROVIDERS: ATTEND Family Medicine | DX: M79.89 Other specified soft tissue disorders (principal) ==

== ENCOUNTER 2021-09-19 10:42 | Outpatient (CLI) | payer BC | END 2021-09-19 10:43 | disposition home or self-care (01) | LOC: BICMAMMO 10:42 | PROVIDERS: ATTEND Family Medicine | DX: Z12.31 Encounter for screening mammogram for malignant neoplasm of breast (principal); Z91.89 Other specified personal risk factors, not elsewhere classified | CPT/HCPCS: 77063; 77067 ==